=== PATIENT | female | born 1975 | race Caucasian/White ===

== ENCOUNTER 2017-01-28 19:11 | Emergency (ER) | payer BC ==
--- NOTE | ~2017-01-28 | CT2 ---
[facility] A Service of [facility] RADIOLOGY TEXT RESULTS PATIENT: GENE BIGGS LOCATION: SED : 73 UNIT #: [id number] AGE: [address]: Guilherme Roblero MD SEX: F ORDER DR: [id number] [address] [address] [id number] E MR#: [id number] Acc #: [id number] NAME: GENE BIGGS : 1975 SEX: F STUDY DATE/TIME: 01/28/2017 21:02 UNIT: SED ROOM: STUDY DESCRIPTION: CT Abd and Pelv W Cont Attending Physician: Guilherme Roblero M.D. Ordering Physician: Guilherme Roblero M.D. Primary Care Physician: Rogers Harris Aprn MEDICAL IMAGING REPORT This report is preliminary unless electronic signature is present. EXAM CT abdomen and pelvis with contrast, 01/28/2017 HISTORY 41-year-old female in the ED complaining of 2-week history of right lower quadrant abdomen pain with nausea, vomiting and diarrhea. Elevated white blood cell count is noted. TECHNIQUE CT examination of the abdomen and pelvis with IV contrast. GI contrast was not ordered or could not be consumed by the patient. This CT examination was performed with one or more of the following radiation dose reduction techniques: automatic exposure control, adjustment of mA and/or kV according to patient size, and iterative reconstruction. FINDINGS ABDOMEN: Mild diffuse hepatic steatosis. Liver, pancreas and spleen are otherwise normal in appearance. Nondistended gallbladder. No bile duct dilatation. Multiple small cysts scattered throughout both kidneys, a few of which have enlarged since 04/01/2014. No visible nephrolithiasis or evidence of urinary obstruction. Normal-caliber abdominal aorta. Small bowel and colon are normal in caliber and appearance, as imaged. The appendix is normal. PELVIS: Hysterectomy. Small physiologic cysts in both ovaries. Bladder and rectum are unremarkable. No inguinal hernia. Limited lung base images show no active disease in the lower chest. [facility] A Service of [facility] RADIOLOGY TEXT RESULTS PATIENT: GENE BIGGS LOCATION: SED : 74 UNIT #: [id number] AGE: [address]: Guilherme Roblero MD SEX: F ORDER DR: IMPRESSION 1. No acute abnormality within the abdomen or pelvis. 2. Mild diffuse hepatic steatosis. 3. Multiple bilateral renal cysts. 4. Hysterectomy. 5. Normal appendix. Dictated by... Juan José Bagley M.D. THIS IS AN ELECTRONICALLY VERIFIED REPORT Juan José Bagley M.D. at 01/29/2017 9:32 PM BOUBACAR/diane TD: 01/29/2017 13:52 JOB #: [id number] MEDICAL IMAGING REPORT Page 1 of 1
[~2017-01-28 19:11] MED LIST: ACETAMINOPHEN; AMOXICILLIN PO; B/P MED; BACTRIM DS TABL1 TAB PO; BAYER ASPIRIN325 M1 PO; BENTYL10 MG PO; BENTYL20 M1 PO; CHOLESTEROL; CHOLESTEROL PILL PO; CIPRO PO; CIPRO250 M1 PO; COZAAR PO; DICLOFENAC PO; FLEXERIL PO; FLEXERIL10 M1 PO; FLEXERIL10 MG PO; FLUCONAZOLE150 MG PO; KEFLEX PO; LISINOPRIL10 MG PO; LORTAB 7.5-3251 EACH; LYRICA100 MG; MAGNESIUM CITRATE; MEDROL PO; MEDROL4 MG/DOSE- PO; METFORMIN HCL500 M1 PO; NO MEDICATIONS; NORCO1 TAB 10/3 PO; PRAVASTATIN SOD10 MG PO; PROVERA PO; PYRIDIUM PO; ULTRAM PO; VICODIN 5/500 T1 TAB PO; VICODIN PO; VOLTAREN75 MG PO; YASMIN 28 TABLE1 TAB PO; ZOFRAN ODT4 MG PO; ZOFRAN ODT4 MG/UDTAB PO; [UNRECOGNIZED DRUG - REMARK]; [UNRECOGNIZED DRUG - REMARK]
[2017-01-28] MEDS ORDERED: TRADJENTA5 MG (19:24)
[2017-01-28] MEDS ORDERED: GLUCOPHAGE500 MG PO (19:24)
[2017-01-28] MEDS ORDERED: SIMVASTATIN20 MG (19:24)
[2017-01-28] MEDS ORDERED: COZAAR25 MG (19:24)
[2017-01-28 20:35] LABS: BASOPHIL# 0.5 X10e3 (0-0.3); BASOPHIL% 3.2 % (0-2.5); EOSINOPHIL# 0.3 X10e3 (0-0.7); EOSINOPHIL% 1.7 % (0.0-7.0); HEMATOCRIT 44.6 % (35.0-45.0); HEMOGLOBIN 15.2 gm/dL (12.0-16.0); LYMPHOCYTE# 5.1 X10e3 (1.0-3.5); LYMPHOCYTE% 32.4 % (17.0-45.0); MEAN CELL VOLUME 91.1 FL (83-96); MEAN CORPUSCULAR HEMOGLOBIN 31.1 PG (28-34); MEAN CORPUSCULAR HGB CONC 34.1 g/dL (30-36); MEAN PLATELET VOLUME 8.8 FL (6.5-11.5); MONOCYTE# 0.7 X10e3 (0-1.0); MONOCYTE% 4.3 % (3.0-12.0); NEUTROPHIL# 9.2 X10e3 (1.5-7.1); NEUTROPHIL% 58.4 % (40-75); PLATELET COUNT 349 X10e3 (140-420); RED CELL DISTRIBUTION WIDTH 13.4 % (11.0-15.5); WHITE BLOOD COUNT 15.8 X10e3 (4.0-10.5)
[2017-01-28 20:38] LABS: DIFF IND YES
[2017-01-28 20:49] LABS: ALBUMIN SERUM 3.9 g/dL (3.5-5.0); ALKALINE PHOSPHATASE 97 U/L (32-92); ALT (SGPT) 21 U/L (10-40); AMYLASE 16 U/L (0-46); AST (SGOT) 17 U/L (10-42); BILIRUBIN,TOTAL 0.2 mg/dL (0.2-2.0); BLOOD UREA NITROGEN 12 mg/dL (9-23); BUN/CREATININE RATIO 17.14; CALCIUM SERUM 9.2 mg/dL (8.4-10.2); CARBON DIOXIDE 26 mmol/L (22-31); CHLORIDE 104 mmol/L (100-111); CREATININE SERUM 0.7 mg/dL (0.6-1.4); GLOM FILT RATE Estimated 106.9 mL/min (>60); GLUCOSE FASTING 136 mg/dL (70-110); LIPASE 40 U/L (22-51); POTASSIUM 3.5 mmol/L (3.5-5.1); PROTEIN TOTAL SERUM 7.4 g/dL (6.0-8.3); SODIUM 138 mmol/L (135-145); URINE SOURCE CLEAN CATCH
[2017-01-28 20:50] LABS: BILIRUBIN, DIRECT <0.1 mg/dL (0.0-0.2); BILIRUBIN,INDIRECT 0.1 mg/dL (0.0-0.9)
[2017-01-28 20:51] LABS: URINE APPEARANCE HAZY; URINE BILIRUBIN NEG (NEG); URINE BLOOD NEG (NEG); URINE COLOR YELLOW; URINE GLUCOSE NEG (NORM); URINE KETONE NEG (NEG); URINE LEUKOCYTE ESTERASE NEG (NEG); URINE NITRATE NEG (NEG); URINE PROTEIN NEG (NEG); URINE UROBILINOGEN 0.2 MG/DL (NORM)
[2017-01-28 20:54] LABS: PLATELET ESTIMATE NORMAL (NORMAL)
[2017-01-28 20:55] LABS: ANISOCYTOSIS SL; POIKILOCYTOSIS SL
[2017-01-28 20:57] LABS: MICRO INDICATED? NO
== END 2017-01-28 21:51 | disposition home or self-care (01) ==
LOC: SED 19:11
PROVIDERS: Emergency Medicine
DX: R10.9 Unspecified abdominal pain (principal); R19.7 Diarrhea, unspecified; R11.2 Nausea with vomiting, unspecified; I25.2 Old myocardial infarction; E11.9 Type 2 diabetes mellitus without complications; E78.5 Hyperlipidemia, unspecified; I10 Essential (primary) hypertension; F17.210 Nicotine dependence, cigarettes, uncomplicated; Z87.442 Personal history of urinary calculi; Z79.899 Other long term (current) drug therapy
CPT/HCPCS: 36415; 74177; 80048; 80076; 81003; 82150; 83690; 85025; 96374; 96375; 99284; J2270; J2405; Q9967